=== PATIENT | male | born 1970 ===

== ENCOUNTER 2017-09-26 15:53 | Emergency (ER) | payer BC ==
[2017-09-26 16:26] VITALS: BMI 28.3
[2017-09-26 16:28] VITALS: RESP 18; TEMP 97.4
--- NOTE | 2017-09-26 16:41 | ED PDOC ---
Arrival/HPI - General Chief Complaint: Male Genitourinary Time Seen by Provider: 09/26/17 16:24 Historian: Patient - History of Present Illness Narrative History of Present Illness (Text): 09/26/17 16:47 Kendall Long is a 47 year old male, whose past medical history includes Varicoceles surgery and inguinal hernia, who presents to the emergency department complaining of lower back pain radiating to flank and groin since last night. Patient describes his pain as an aching pressure to his back. Patient also states that he experiences associated urinary retention, frequency , and dysuria. Patient denies any nausea, vomiting, diarrhea, hematuria, penile discharge, penile pus, or any other complaints at this time. PMD: None Time/Duration: 24 hours Symptom Onset: Gradual Symptom Course: Unchanged Activities at Onset: Light Context: Home Past Medical History - Provider Review Nursing Documentation Reviewed: Yes - Psychiatric Hx Substance Use: No - Surgical History Hx Orthopedic Surgery: Yes Hx Vascular Surgery: Yes Family/Social History - Physician Review Nursing Documentation Reviewed: Yes Family/Social History: No Known Family HX Smoking Status: Never Smoked Hx Alcohol Use: No Hx Substance Use: No Allergies/Home Meds Allergies/Adverse Reactions: Allergies No Known Allergies Allergy (Verified 09/26/17 16:20) Review of Systems - Physician Review All systems were reviewed & negative as marked: Yes - Review of Systems Constitutional: absent: Fevers, Night Sweats Eyes: absent: Vision Changes ENT: absent: Hearing Changes Respiratory: absent: SOB, Cough Cardiovascular: absent: Chest Pain Gastrointestinal: Abdominal Pain (aching pressure in abdomen radiating to his back and testicles) Genitourinary Male: Dysuria, Frequency, Other (Rentention). absent: Hematuria, Urinary Output Changes Musculoskeletal: Back Pain Skin: absent: Rash, Pruritis Neurological: absent: Headache, Dizziness Endocrine: absent: Diaphoresis Hemo/Lymphatic: absent: Adenopathy Psychiatric: absent: Anxiety, Depression Physical Exam Vital Signs Reviewed: Yes Vital Signs Temp Pulse Resp BP Pulse Ox 09/26/17 22:04 68 18 131/80 99 09/26/17 20:58 74 18 135/74 98 09/26/17 20:00 78 18 150/90 99 09/26/17 18:15 89 18 158/95 H 98 09/26/17 16:25 97.4 F L 61 18 160/103 H Blood Pressure: Hypertensive Pulse: Regular Respiratory Rate: Normal Appearance: Positive for: Well-Appearing, Non-Toxic, Comfortable Pain Distress: None Mental Status: Positive for: Alert and Oriented X 3 - Systems Exam Head: Present: Atraumatic, Normocephalic Pupils: Present: PERRL Extroacular Muscles: Present: EOMI Conjunctiva: Present: Normal Mouth: Present: Moist Mucous Membranes Neck: Present: Normal Range of Motion Respiratory/Chest: Present: Clear to Auscultation, Good Air Exchange. No: Respiratory Distress, Accessory Muscle Use Cardiovascular: Present: Regular Rate and Rhythm, Normal S1, S2. No: Murmurs Abdomen: No: Tenderness Genitourinary Male: No: Hernias Back: Present: Normal Inspection. No: CVA Tenderness, Midline Tenderness, Paraspinal Tenderness Upper Extremity: Present: Normal Inspection. No: Cyanosis, Edema Lower Extremity: Present: Normal Inspection. No: Edema Neurological: Present: GCS=15, CN II-XII Intact, Speech Normal Skin: Present: Warm, Dry, Normal Color. No: Rashes Psychiatric: Present: Alert, Oriented x 3, Normal Insight, Normal Concentration Medical Decision Making ED Course and Treatment: 09/26/17 16:35 Impression: 47 year old male complaining of lower back pain radiating to flank and groin since last night. Differential Diagnosis included but are not limited to: Kidney Stones vs Muscle Skeletal vs Varicocele Plan: -- Abdomen and Pelvis CT w/o contrast -- Testes Ultrasound -- Labs -- Toradol and IV fluids -- Reassess and disposition Prior Visits: Notes and results from previous visits were reviewed. Patient was last seen in the emergency department on 11/04/16 for right sided jaw pain. Patient was discharged home. Progress Notes: 09/26/17 22:18 On re-evaluation, abdomen remains soft, non-tender. Pt is tolerating PO, states he feels better. Pt will f/u with Dr. Rashid outpatient. CT Abdomen and Pelvis Without Intravenous Contrast IMPRESSION: 1. No definite CT evidence of urolithiasis. 2. Incidental/non-acute findings are described above. Testicular Ultrasound IMPRESSION: 1. No definite sonographic evidence of testicular torsion. 2. Right varicocele. - Lab Interpretations Lab Results: 09/26/17 16:35 09/26/17 16:35 Lab Results 09/26/17 16:35: Sodium 140, Potassium 4.5, Chloride 103, Carbon Dioxide 26, Anion Gap 15, BUN 23 H, Creatinine 0.9, Est GFR ( Amer) > 60, Est GFR ( Non-Af Amer) > 60, Random Glucose 113 H, Calcium 10.1, Total Bilirubin 0.6, AST 29, ALT 38, Alkaline Phosphatase 56, Total Protein 7.9, Albumin 4.6, Globulin 3.4, Albumin/Globulin Ratio 1.4 09/26/17 16:35: Urine Color Yellow, Urine Appearance Clear, Urine pH 5.5, Ur Specific [place] >= 1.030, Urine Protein Negative, Urine Glucose (UA) Negative, Urine Ketones 15 H, Urine Blood Negative, Urine Nitrate Negative, Urine Bilirubin Negative, Urine Urobilinogen 0.2, Ur Leukocyte Esterase Negative 09/26/17 16:35: WBC 7.2, RBC 5.32, Hgb 16.0, Hct 48.3, MCV 90.8, MCH 30.1, MCHC 33.1, RDW 13.6, Plt Count 158, MPV 12.3 H, Gran % 77.7 H, Lymph % (Auto) 17.3 L , [place] % (Auto) 4.6, Eos % (Auto) 0.3 L, Baso % (Auto) 0.1, Gran # 5.57, Lymph # 1.2, [place] # 0.3, Eos # 0.0, Baso # 0.01 I have reviewed the lab results: Yes - RAD Interpretation Radiology Orders: 09/26/17 16:48 ABD & PELVIS W/O PO OR IV CONT [CT] Stat TESTES DUPLEX COMPLETE [US] Stat - Medication Orders Current Medication Orders: Discontinued Medications Sodium Chloride (Sodium Chloride 0.9%) 1,000 mls @ 999 mls/hr IV .Q1H1M STA Stop: 09/26/17 17:48 Last Admin: 09/26/17 17:01 Dose: 999 mls/hr eMAR Start Stop Document 09/26/17 17:01 SF (Rec: 09/26/17 17:02 SF [id number]) Intravenous Solution Start Date 09/26/17 Start Time 17:01 End Date 09/26/17 End time 18:02 Total Infusion Time 61 Ketorolac Tromethamine (Toradol) 30 mg IVP STAT STA Stop: 09/26/17 16:48 Last Admin: 09/26/17 17:02 Dose: 30 mg MAR Pain Assessment Document 09/26/17 17:02 SF (Rec: 09/26/17 17:02 [id number][facility] Pain Reassessment Is this a pain reassessment? Yes Sleep Is patient sleeping during reassessment? No Presence of Pain Presence of Pain Yes Pain Scale Used Pain Scale Used Numeric Location Left, Right or Bilateral Bilateral Upper or Lower Lower Pain Location Body Site Back Description Description Constant IVP Administration Document 09/26/17 17:02 SF (Rec: 09/26/17 17:02 [id number]) Charges for Administration # of IVP Administrations 1 Morphine Sulfate (Morphine) 4 mg IVP STAT STA Stop: 09/26/17 20:33 Last Admin: 09/26/17 21:00 Dose: 4 mg Comments: wasted with RNJhoan IVP Administration Document 09/26/17 21:00 SF (Rec: 09/26/17 21:01 [id number]) Charges for Administration # of IVP Administrations 1 - Scribe Statement The provider has reviewed the documentation as recorded by the Ricky Hernandez Provider Scribe Attestation: All medical record entries made by the Scribe were at my direction and personally dictated by me. I have reviewed the chart and agree that the record accurately reflects my personal performance of the history, physical exam, medical decision making, and the department course for this patient. I have also personally directed, reviewed, and agree with the discharge instructions and disposition. Disposition/Present on Arrival - Present on Arrival Any Indicators Present on Arrival: No History of DVT/PE: No History of Uncontrolled Diabetes: No Urinary Catheter: No History of Decub. Ulcer: No History Surgical Site Infection Following: None - Disposition Have Diagnosis and Disposition been Completed?: Yes Diagnosis: Abdominal pain Disposition: HOME/ ROUTINE Disposition Time: 22:05 Patient Plan: Discharge Condition: IMPROVED Discharge Instructions (ExitCare): Abdominal Pain (ED) Print Language: LITHUANIAN Additional Instructions: Mercedes, thank you for letting us take care of you today. Your provider was Dr. Sosa. You were treated for Abdominal Pain. The emergency medical care you received today was directed at your acute symptoms. If you were prescribed any medication, please fill it and take as directed. It may take several days for your symptoms to resolve. Return to the Emergency Department if your symptoms worsen, do not improve, or if you have any other problems. Please contact your doctor or call one of the physicians/clinics you have been referred to that are listed on the Patient Visit Information form that is included in your discharge packet. Bring any paperwork you were given at discharge with you along with any medications you are taking to your follow up visit. Our treatment cannot replace ongoing medical care by a primary care provider (PCP) outside of the emergency department. Thank you for allowing the [facility] team to be part of your care today. If you had an X-Ray or CT scan: A Radiologist will review the ED reading if any change in treatment is needed we will contact you. If you had a blood, urine, or wound culture: It will take several days for the results, if any change in treatment is needed we will contact you. If you had an STI test: It will take 48 hours for the results. Please call after 1 week if you have not heard back. Prescriptions: Famotidine [Pepcid] 20 mg PO DAILY #30 tab Ibuprofen [Motrin] 600 mg PO Q6 PRN #30 tab PRN Reason: Pain, Moderate (4-7) Referrals: Angel Rashid MD [Staff Provider] - Follow up with primary Forms: [employer] (Mongolian), WORK NOTE
[2017-09-26] MEDS ORDERED: Sodium Chloride 0.9% 1,000 ML IV STA (16:48)
[2017-09-26 16:56] LABS: BASO # 0.01 K/mm3 (0.0-2.0); BASO % 0.1 % (0.0-3.0); EOS % 0.3 % (1.5-5.0); GRAN # 5.57 (1.4-6.5); GRAN % 77.7 % (50.0-68.0); LYMPH # 1.2 (1.2-3.4); LYMPH % 17.3 % (22.0-35.0); MEAN CELL VOLUME 90.8 fl (80.0-105.0); MEAN CORPUSCULAR HEMOGLOBIN 30.1 pg (25.0-35.0); MEAN CORPUSCULAR HGB CONC 33.1 g/dl (31.0-37.0); MEAN PLATELET VOLUME 12.3 fl (7.0-11.0); MONO # 0.3 (0.1-0.6); MONO % 4.6 % (1.0-6.0); RBC 5.32 10^6/uL (3.5-6.1); RED CELL DISTRIBUTION WIDTH 13.6 % (11.5-14.5); WHITE BLOOD COUNT 7.2 10^3/ul (4.5-11.0)
[2017-09-26 16:57] LABS: PH,URINE 5.5 (4.7-8.0); URINE BILIRUBIN NEGATIVE (NEGATIVE); URINE BLOOD NEGATIVE (NEGATIVE); URINE GLUCOSE (UA) NEGATIVE (NEGATIVE); URINE LEUKOCYTE ESTERASE NEGATIVE Leu/uL (NEGATIVE); URINE NITRATE NEGATIVE (NEGATIVE); URINE PROTEIN NEGATIVE mg/dL (<30 mg/dL); URINE UROBILINOGEN 0.2 E.U./dL (<1 E.U./dL)
[2017-09-26 17:01] LABS: URINE APPEARANCE CLEAR (CLEAR); URINE COLOR YELLOW (YELLOW)
[2017-09-26 17:34] LABS: ALB/GLOB RATIO 1.4 (1.1-1.8); ALBUMIN 4.6 g/dL (3.0-4.8); ALT/SGPT 38 U/L (7-56); AST/SGOT 29 U/L (17-59); BLOOD UREA NITROGEN 23 mg/dL (7-21); CALCIUM 10.1 mg/dL (8.4-10.5); GFR AFRICAN-AMERICAN > 60; GFR NON-AFRICAN AMERICAN > 60
--- NOTE | 2017-09-26 19:41 | US ---
EXAM: US Scrotum CLINICAL HISTORY: 47 years old, male; Pain; Scrotum pain; Additional info: Pain R/O varicocele R/O torsion TECHNIQUE: Real-time ultrasound of the scrotum with color Doppler and image documentation. COMPARISON: No relevant prior studies available. FINDINGS: Right testicle: No mass. No torsion. Left testicle: No mass. No torsion. Epididymides: Small epididymal cysts. Scrotum: Small right hydrocele. Right varicocele. IMPRESSION: 1. No definite sonographic evidence of testicular torsion. 2. Right varicocele.
--- NOTE | 2017-09-26 19:52 | CT ---
EXAM: CT Abdomen and Pelvis Without Intravenous Contrast CLINICAL HISTORY: 47 years old, male; Pain; Abdominal pain; Flank; Right; Additional info: Abd pain R/O renal colic TECHNIQUE: Axial computed tomography images of the abdomen and pelvis without intravenous contrast. All CT scans at this facility use one or more dose reduction techniques, viz.: automated exposure control; ma/kV adjustment per patient size (including targeted exams where dose is matched to indication; i.e. head); or iterative reconstruction technique. Coronal and sagittal reformatted images were created and reviewed. COMPARISON: No relevant prior studies available. FINDINGS: Limitations: Motion artifact - mild. Lower thorax: No acute findings. ABDOMEN: Liver: Unremarkable. Gallbladder and bile ducts: No calcified stones. No ductal dilation. Pancreas: Unremarkable. No ductal dilation. Spleen: No splenomegaly. Adrenals: No mass. Kidneys and ureters: No renal calculi. No hydronephrosis. Stomach and bowel: Few scattered diverticula within colon. No associated inflammatory stranding. No definite mural thickening. No obstruction. Appendix: Normal caliber. No inflammation. PELVIS: Bladder: Unremarkable. No stones. Reproductive: Unremarkable as visualized. ABDOMEN and PELVIS: Intraperitoneal space: No significant fluid collection. No free air. Bones/joints: Postsurgical changes of right femur. Mild degenerative changes of lumbar spine. No acute fracture. Soft tissues: Tiny umbilical hernia containing fat. Vasculature: Minimal atherosclerotic disease. No aneurysm. Lymph nodes: No pathologically enlarged lymph nodes. IMPRESSION: 1. No definite CT evidence of urolithiasis. 2. Incidental/non-acute findings are described above.
[2017-09-26] MEDS ORDERED: Morphine 5 MG/ML SYRINGE IVP STA (20:32)
[2017-09-26 22:05] VITALS: BP 131/80; PULSE 68; O2SAT 99
== END 2017-09-26 22:05 | disposition home or self-care (01) ==
LOC: ED 15:53
DX: R10.9 Unspecified abdominal pain (principal)
CPT/HCPCS: 74176; 80053; 81003; 85025; 93975; 96361; 96374; 96375; 99285; J1885; J2270; J7040

== ENCOUNTER 2017-09-27 06:30 | Emergency (ER) | payer BC ==
[2017-09-27 06:31] VITALS: BMI 28.3
[2017-09-27 06:48] VITALS: RESP 18
[2017-09-27] MEDS ORDERED: cefTRIAXone (Rocephin) 250 mg Inj IM STA (07:42)
--- NOTE | 2017-09-27 07:55 | ED PDOC ---
Arrival/HPI - General Chief Complaint: Male Genitourinary Time Seen by Provider: 09/27/17 07:11 Historian: Patient - History of Present Illness Narrative History of Present Illness (Text): 09/27/17 08:06 A 47 year old male, whose past medical history includes Varicoceles surgery and inguinal hernia, presents to the emergency department complaining of back pain radiating to groin. Patient was seen in the emergency department yesterday for similar complaints, CT abd/pelvis showed no kidney stones and US testes showed no testicular torsion. Notes pain persisted. Patient reports last sexual intercourse was 15 days ago. Denies any other complaints at this time. Symptom Onset: Sudden Symptom Course: Unchanged Activities at Onset: Rest Context: Home Past Medical History - Provider Review Nursing Documentation Reviewed: Yes - Psychiatric Hx Substance Use: No - Surgical History Hx Orthopedic Surgery: Yes Hx Vascular Surgery: Yes Family/Social History - Physician Review Nursing Documentation Reviewed: Yes Family/Social History: No Known Family HX Smoking Status: Never Smoked Hx Alcohol Use: No Hx Substance Use: No Allergies/Home Meds Allergies/Adverse Reactions: Allergies No Known Allergies Allergy (Verified 09/26/17 16:20) Review of Systems - Physician Review All systems were reviewed & negative as marked: Yes - Review of Systems Constitutional: absent: Fevers Musculoskeletal: Back Pain (radiating to groin) Physical Exam - Physical Exam Narrative Physical Exam (Text): 09/27/17 08:05 Constitutional: No acute distress. Head: Normocephalic. Atraumatic. Eyes: PERRL. ENT: Moist mucous membranes. Neck: Supple. Cardiovascular: Regular rate. Chest: No tenderness. Respiratory: Clear to auscultation bilaterally. GI: Soft. Nontender. Nondistended. : no testicular tenderness or swelling; no penile discharge Back: No CVA tenderness. Musculoskeletal: No tenderness or swelling of extremities. No flank tenderness. Skin: No rash. Neurologic: Alert, no focal deficit. Vital Signs Reviewed: Yes Vital Signs Temp Pulse Resp BP Pulse Ox 09/27/17 06:45 98.4 F 73 18 129/84 99 Temperature: Afebrile Blood Pressure: Normal Pulse: Regular Respiratory Rate: Normal Appearance: Positive for: Well-Appearing, Non-Toxic, Comfortable Pain Distress: None Mental Status: Positive for: Alert and Oriented X 3 Medical Decision Making ED Course and Treatment: 09/27/17 07:56 Impression: A 47 year old male with back pain radiating to groin with negative evaluation for kidney stone or torsion and no UTI on UA. Plan: -- labs -- Rocephin, Toradol, Zithromax -- Reassess and disposition Prior Visits: Notes and results from previous visits were reviewed. Patient was last seen in the emergency department yesterday for similar complaints. Progress Notes: 09/27/17 08:07 I informed patient that he will be treated with antibiotics empirically but that he requires further evaluation with primary care. Will give follow up information again for Medical Service that he received yesterday. Instructed to return to ED for worsening pain, fever, vomiting, dyspnea, or any other problem. - Lab Interpretations I have reviewed the lab results: Yes - Medication Orders Current Medication Orders: Discontinued Medications Azithromycin (Zithromax) 1,000 mg PO STAT STA PRN Reason: Protocol Stop: 09/27/17 07:43 Last Admin: 09/27/17 08:05 Dose: 1,000 mg Ceftriaxone Sodium (Rocephin) 250 mg IM STAT STA PRN Reason: Protocol Stop: 09/27/17 07:43 Last Admin: 09/27/17 08:05 Dose: 250 mg IM Administration Charges Document 09/27/17 08:05 SRE (Rec: 09/27/17 08:06 SRE [id number]) Injection Site MAR Injection Site Left Gluteus Antoine Charges for Administration # of IM Administrations 1 Ketorolac Tromethamine (Toradol) 60 mg IM STAT STA Stop: 09/27/17 07:45 Last Admin: 09/27/17 08:05 Dose: 60 mg MAR Pain Assessment Document 09/27/17 08:05 SRE (Rec: 09/27/17 08:05 SRE [id number]) Pain Reassessment Is this a pain reassessment? Yes Sleep Is patient sleeping during reassessment? No Presence of Pain Presence of Pain Yes Pain Scale Used Pain Scale Used Numeric IM Administration Charges Document 09/27/17 08:05 SRE (Rec: 09/27/17 08:05 SRE [id number]) Charges for Administration # of IM Administrations 1 - Scribe Statement The provider has reviewed the documentation as recorded by the Ricky Green Provider Scribe Attestation: All medical record entries made by the Scribe were at my direction and personally dictated by me. I have reviewed the chart and agree that the record accurately reflects my personal performance of the history, physical exam, medical decision making, and the department course for this patient. I have also personally directed, reviewed, and agree with the discharge instructions and disposition. Disposition/Present on Arrival - Present on Arrival Any Indicators Present on Arrival: No History of DVT/PE: No History of Uncontrolled Diabetes: No Urinary Catheter: No History of Decub. Ulcer: No History Surgical Site Infection Following: None - Disposition Have Diagnosis and Disposition been Completed?: Yes Diagnosis: Dysuria Disposition: HOME/ ROUTINE Disposition Time: 07:54 Patient Plan: Discharge Patient Problems: Current Active Problems Problem Status Onset Dysuria Acute Condition: STABLE Discharge Instructions (ExitCare): Dysuria (ED) Referrals: Angel Rashid MD [Staff Provider] - Follow up with primary Forms: [employer] (Angolan)
[2017-09-27] MEDS ORDERED: Lidocaine 1% Inj (20ml) ONE (07:59)
[2017-09-27 08:33] VITALS: BP 135/79; PULSE 82; TEMP 98; O2SAT 97
== END 2017-09-27 08:33 | disposition home or self-care (01) ==
LOC: ED 06:30
DX: R30.0 Dysuria (principal)
CPT/HCPCS: 87491; 87591; 96372; 99284; J0696; J1885